=== PATIENT | male | born 2000 | race African-American/Black ===

== ENCOUNTER 2018-09-18 20:38 | Emergency (ER) | payer SELFPAY ==
[~2018-09-18] VITALS: Ht 177.8 cm; Wt 70.3 kg
[2018-09-18] MEDS ORDERED: NKM (20:44)
[2018-09-18 20:50] VITALS: BP 157/99
--- NOTE | 2018-09-18 20:55 | NUR ---
ED Nurse Note: Patient walked in to ER c/o lower abdominal pain. Per patient he was working out 4 days ago, and when he got home his lower back started zhang him. For now patient c/o abdominal pain 08/28. AAO x4, VSS at this time, skin is dry, intact, warm to touch.
--- NOTE | 2018-09-18 21:00 | Emergency Room Report ---
History of Present Illness General Chief Complaint: Abdominal Pain Source: Patient Present Illness HPI This is a 18-year-old male with no past medical history. He presents with abdominal pain. Onset for about 4 days now. This occur after a strenuous workout at the gym. He fell soreness to his hip initially but now in the inguinal area. Moving up and down is not causing a problem. Side to side cause some pressure and pain. It felt deeper. Pain is 8 out of 10. No hematuria. No nausea vomiting. No diarrhea. No trauma. No fever. Allergies: Coded Allergies: No Known Allergies (Unverified , 09/18/18) Patient History Past Medical History: none, see triage record, old chart reviewed Past Surgical History: none Pertinent Family History: none Social History: Denies: smoking Immunizations: other Reviewed Nursing Documentation: PMH: Agreed; PSxH: Agreed Nursing Documentation-PMH Past Medical History: No Stated History Review of Systems Eye: Denies: eye pain, blurred vision ENT: Denies: ear pain, nose congestion, throat swelling Respiratory: Denies: cough, shortness of breath Cardiovascular: Denies: chest pain, palpitations Gastrointestinal: Reports: abdominal pain; Denies: diarrhea, nausea, vomiting Musculoskeletal: Denies: back pain, joint pain Skin: Denies: rash Neurological: Denies: headache, numbness Endocrine: Denies: increased thirst, increased urine Hematologic/Lymphatic: Denies: easy bruising All Other Systems: negative except mentioned in HPI Physical Exam Vital Signs Date Time Temp Pulse Resp B/P (MAP) Pulse Ox O2 Delivery O2 Flow Rate FiO2 09/18/18 20:40 98.4 76 18 157/99 98 Room Air vitals high blood pressure Sp02 EP Interpretation: reviewed, normal General Appearance: well appearing, no apparent distress, alert Head: normocephalic, atraumatic Eyes: bilateral eye PERRL, bilateral eye EOMI ENT: hearing grossly normal, normal pharynx Neck: full range of motion, supple, no meningismus Respiratory: chest non-tender, lungs clear, normal breath sounds Cardiovascular #1: regular rate, rhythm, no murmur Gastrointestinal: normal bowel sounds, non tender, no mass, no organomegaly, no bruit, non-distended, other - No hernia Musculoskeletal: back normal, gait/station normal, normal range of motion Psychiatric: mood/affect normal Skin: warm/dry Medical Decision Making Diagnostic Impression: Primary Impression: Groin strain Qualified Codes: S76.219A - Strain of adductor muscle, fascia and tendon of unspecified thigh, initial encounter ER Course Patient presents with lower pelvic abdominal pain. This probably from muscle strain. No evidence of any tear or bleeding. No internal injury. No infection or hernia. We'll discharge home. CT/MRI/US Diagnostic Results CT/MRI/US Diagnostic Results : Imaging Test Ordered: CT abdomen and pelvis Impression negative per radiologist Last Vital Signs Date Time Temp Pulse Resp B/P (MAP) Pulse Ox O2 Delivery O2 Flow Rate FiO2 09/18/18 20:50 76 18 Room Air 09/18/18 20:50 98.4 157/99 98 Status: improved Disposition: HOME, SELF-CARE Condition: Stable Scripts Ibuprofen* (MOTRIN*) 600 Mg Tablet 600 MG ORAL THREE TIMES A DAY, #30 TAB 0 Refills Prov: Juan Reilly MD 09/18/18 Additional Instructions: Follow-up with your doctor in 7 days. Hold off on working out until completely better. Return if symptom worsen. If not better, may need abdominal and pelvic MRI. Juan Reilly MD September 18, 2018 21:00
--- NOTE | 2018-09-18 21:09 | NUR ---
ED Nurse Note: patient went down for CT
[2018-09-18 21:26] LABS: APPEARANCE,URINE CLEAR; BILIRUBIN, URINE NEGATIVE (NEGATIVE); COLOR,URINE PALE YELLOW; GLUCOSE, URINE (UA) NEGATIVE (NEGATIVE); KETONES,URINE 1+ (NEGATIVE); LEUKOCYTE ESTERASE ,URINE NEGATIVE (NEGATIVE); NITRITE,URINE NEGATIVE (NEGATIVE); PH,URINE 5 (4.5-8.0); PROTEIN,URINE NEGATIVE (NEGATIVE); UROBILINOGEN,URINE NORMAL MG/DL (0.0-1.0)
[2018-09-18] MEDS ORDERED: IBUPROFEN600 MG ORAL (21:37)
--- NOTE | 2018-09-18 21:39 | NUR ---
ER DISCHARGE NOTE: Patient is cleared to be discharged per ERMD, pt is AAOx4, 100% on room air, with stable vital signs. pt was given dc and prescription instructions, pt was able to verbalize understanding, pt ID band removed. pt is able to ambulate with steady gait. pt took all belongings.
--- NOTE | 2018-09-19 09:37 | Diagnostic Imaging Report ---
Indication: Abdominal pain Technique: Continuous helical transaxial imaging of the abdomen and pelvis was obtained from the lung bases to the pubic symphysis. No intravenous contrast was administered. Coronal 2-D reformats were also obtained. Automatic Exposure Control was utilized. Total Dose length Product (DLP): 510.[address] Dose Index Volume (CTDIvol): 10.11 mGy Comparison: none Findings: The study is very limited as no contrast was given. In addition the patient has very little intra-abdominal fat which further limits evaluation. There are no renal stones identified. There is no hydronephrosis identified. The lung bases are clear. The appendix is not seen. The study is relatively nondiagnostic with regard to evaluation of the appendix. There are no obvious secondary signs of acute appendicitis. No obvious abnormal fluid collections are identified. The bladder is nondistended. IMPRESSION: Negative evaluation. Study is limited as discussed above The CT scanner at [facility] is accredited by the [employer] and the scans are performed using dose optimization techniques as appropriate to a performed exam including Automatic Exposure control.
== END 2018-09-18 21:50 | disposition home or self-care (01) ==
LOC: EMR 21:20
DX: S39.011A Strain of muscle, fascia and tendon of abdomen, initial encounter (principal); Y93.B9 Activity, other involving muscle strengthening exercises; Y92.39 Other specified sports and athletic area as the place of occurrence of the external cause
CPT/HCPCS: 74176; 81003; 99284